=== PATIENT | female | born 1940 | race Caucasian/White ===

== ENCOUNTER 2018-03-10 11:47 | Emergency (ER) | payer OTHER, MEDICARE ==
[~2018-03-10] VITALS: Ht 152.4 cm; Wt 99.8 kg
--- NOTE | 2018-03-10 12:32 | ED AMS/SEIZURE/WEAK/DIZZY ---
History of Present Illness General Chief Complaint: Dizziness Stated Complaint: SENT BY MD FOR DIZZINESS X 2WKS ON AND OFF Source: patient, family Exam Limitations: no limitations Vital Signs & Intake/Output Vital Signs & Intake/Output Vital Signs Date Time Temp Pulse Resp B/P B/P Pulse O2 O2 Flow FiO2 Mean Ox Delivery Rate 03/10 1807 97.7 70 16 122/69 98 Room Air 03/10 1406 98.1 80 18 130/72 94 Room Air 03/10 1213 Room Air 03/10 1159 98.4 84 18 122/74 98 Room Air Allergies Coded Allergies: NO KNOWN ALLERGIES (05/21/12) Triage Note: C/O DIZZINESS THIS AM, LASTED APRROX 1 MINUTES. STATES SHE FELT A "BUZZING" AND A "HUM" IN HER HEAD. DENIES WEAKNESS. NO FACIAL DROOP. HAD 2 SIMILIAR EPSISODES 2 WEEKS AGO. Triage Nurses Notes Reviewed? yes Onset: Abrupt Duration: minute(s): Timing: single episode today Injury Environment: home Severity: mild HPI: 77YO female with hx of DM, HTN, hyperlipidemia presents to ED complaining of abnormal buzzing sensation in her head. Patient states that while she was using her computer about one hour prior to arrival she experienced an episode of buzzing/humming sensation in her head above her left eye. Patient states this episode lasted for approximately 1 minute. Patient states that during this episode she felt as though she could not move, she felt trapped. Patient states that 2 similar episodes have happened in the past about 2 weeks ago. Patient states she had been using her computer since 3 AM. Condition is currently writing of breath, her daughters state that the patient was on the computer for hours without taking a break to eat or use the bathroom. Patient states that the previous episodes have occurred while she was using the computer for extended period of time as well. The patient denies numbness, tingling, blurry vision, headache, dizziness, weakness, chest pain, dyspnea, abdominal pain. (Latia WILDE,Debbie Deutsch) Past History Travel History Traveled to [place] past 21 day No Medical History Any Pertinent Medical History? see below for history Neurological: NONE EENT: NONE Cardiovascular: hypertension, hyperlipidemia Respiratory: NONE Gastrointestinal: NONE Hepatic: NONE Renal: NONE Musculoskeletal: NONE Psychiatric: NONE Endocrine: diabetes Surgical History Surgical History: non-contributory Psychosocial History Who do you live with Patient/Self Services at Home None What is your primary language [place] Citizen Tobacco Use: Never used ETOH Use: denies use Family History Hx Contributory? No (Debbie Cedeño) Review of Systems Review of Systems Constitutional: Reports: see HPI. EENTM: Reports: no symptoms. Respiratory: Reports: no symptoms. Cardiovascular: Reports: no symptoms. GI: Reports: no symptoms. Genitourinary: Reports: no symptoms. Musculoskeletal: Reports: no symptoms. Skin: Reports: no symptoms. Neurological/Psychological: Reports: see HPI. Hematologic/Endocrine: Reports: no symptoms. Immunologic/Allergic: Reports: no symptoms. All Other Systems: Reviewed and Negative (Debbie Cedeño) Physical Exam Physical Exam General Appearance: well developed/nourished, no apparent distress, alert, awake Head: atraumatic, normal appearance Eyes: Bilateral: normal appearance, PERRL, EOMI. 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 No CVA/TIA Diagnosis No Sepsis Present: No Sepsis Focused Exam Completed? No (Debbie Cedeño) Progress Differential Diagnosis: arrythmia, alcohol intoxication, benign positional vertigo, CVA/stroke, dehydration, drug intoxication, electrolyte imbalance, intracranial Hem., intracranial mass/tumor, seizure disorder, UTI/pyelo, vertebrobasilar insuff, Carotid stenosis Plan of Care: Orders Procedure Date/time Status URINALYSIS 03/10 1158 Complete TROPONIN LEVEL 03/10 1158 Complete COMPREHENSIVE METABOLIC PANEL 03/10 1158 Complete CBC WITHOUT DIFFERENTIAL 03/10 1158 Complete EKG 03/10 1148 Active Laboratory Tests 03/10/18 1543: Urine Color YEL, Urine Clarity CLEAR, Urine pH 7.0, Ur Specific Sanderson 1.015, Urine Protein NEG, Urine Ketones NEG, Urine Nitrite NEG, Urine Bilirubin NEG, Urine Urobilinogen 1.0, Ur Leukocyte Esterase SMALL H, Ur Microscopic SEDIMENT EXAMINED, Urine WBC 1-3 H, Ur Epithelial Cells FEW, Urine Hemoglobin NEG, Urine Glucose 100 H 03/10/18 1230: Anion Gap 9, Estimated GFR > 60, BUN/Creatinine Ratio 30.0 H, Glucose 111 H, Calcium 10.3 H, Total Bilirubin 0.4, AST 24, ALT 16, Alkaline Phosphatase 38, Troponin I < 0.01, Total Protein 7.1, Albumin 3.8, Globulin 3.3, Albumin/ Globulin Ratio 1.2, CBC w Diff NO MAN DIFF REQ, RBC 4.76, MCV 80.5 L, MCH 25.5 L, MCHC 31.7 L, RDW 18.3 H, MPV 8.9, Gran % 63.5, Lymphocytes % 25.3, Monocytes % 9.7 H, Eosinophils % 1.3, Basophils % 0.2, Absolute Granulocytes 4.9, Absolute Lymphocytes 2.0, Absolute Monocytes 0.7 H, Absolute Eosinophils 0.1, Absolute Basophils 0 Patient admits to stopping her atorvastatin and potassium supplement for the past 2 weeks. Today the patient's potassium level is within normal limits. The patient is neurologically intact, no focal neurologic deficit. Head CT scan is within normal limits. The patient was seen and evaluated by Dr. Rivera. He recommends obtaining a carotid Doppler ultrasound to assess for stenosis. Ultrasound shows 50-79% stenosis bilaterally. Awaiting vascular consult. Spoke with Dr. Denise - he recommends continuing her baby ASA and statin and he will see the patient in the office. The patient feels ready to go home at this time. Her labs are stable, she is in no acute distress. She has had no symptoms while being here in the emergency department. We'll place vascular as an outpatient. Patient also follow-up with her primary care doctor. She'll continue taking all medications as prescribed. The patient was given strict return precautions. The patient and her family agree with the plan of care. Dr. Rivera agrees with this plan. Diagnostic Imaging: Viewed by Me: CT Scan, Ultrasound. Discussed w/RAD: CT Scan, Ultrasound. Radiology Impression: PATIENT: CHAPINCITO GUNDERSON PRESENT AGE: 77 PATIENT ACCOUNT NO: [id number] : 39 LOCATION: [facility] ORDERING PHYSICIAN: Debbie WILDE SERVICE DATE: 03/10/18-1158 EXAM TYPE: CAT - CT HEAD WO IV CONTRAST EXAMINATION: CT HEAD WITHOUT CONTRAST CLINICAL INFORMATION: Intermittent dizziness episodes. COMPARISON: 05/20/2012 TECHNIQUE: Contiguous axial imaging was performed from the skull base to vertex without intravenous administration of contrast. DLP: 610 mGy-cm FINDINGS: There is no evidence of acute intracranial hemorrhage or territorial infarction. No abnormal mass effect or midline shift is seen. Rushing to white matter differentiation is well preserved. No extra-axial fluid collections are identified. No hydrocephalus. The ventricles are normal in size. Mild periventricular and deep white matter hypoattenuation is consistent with small vessel ischemic change. The osseous structures and soft tissues are normal. The mastoid air cells and visualized portions of the paranasal sinuses are well aerated. IMPRESSION: No acute intracranial pathology. Mild small vessel ischemic changes. DICTATED BY: Mahesh Padilla MD DATE/TIME DICTATED:03/10/181318 SALES TEAM MANAGER: JANNEE DATE/TIME TRANSCRIBED:03/10/181318 CONFIDENTIAL, DO NOT COPY WITHOUT APPROPRIATE AUTHORIZATION. <Electronically signed in Other Vendor System> SIGNED BY: Randy HARRIS,Mahesh 03/10/18 1326, PATIENT: CHAPINCITO GUNDERSON PRESENT AGE: 77 PATIENT ACCOUNT NO: [id number] : 39 LOCATION: [facility] ORDERING PHYSICIAN: Debbie WILDE SERVICE DATE: 03/10/187884 EXAM TYPE: US - [id number] DOPPLER EXAMINATION: DUPLEX BILATERAL CAROTID ULTRASOUND CLINICAL INFORMATION: Episodes of buzzing in head with dizziness. COMPARISON: None. TECHNIQUE: \\H\\B\\N\\ilateral carotid US was performed using real-time ultrasound and Doppler techniques (integrating B-mode 2D vascular images, Doppler spectral analysis and color flow Doppler imaging). These techniques were utilized to interrogate the extracranial carotid and vertebral arteries bilaterally. The degree of stenosis is based off criteria similar to NASCET. FINDINGS: Right side: 1. Small amount of hyperechoic plaque is seen in the ECA/ICA region. 2. The common carotid artery velocity is 87 cm/s. 3. The internal carotid artery velocities are 153 cm/s systolic and 37 cm/s diastolic. 4. The external carotid artery velocity is 85 cm/s. Left side: 1. Small amount of hyperechoic plaque is seen in the ECA/ICA region. 2. The common carotid artery velocity is 96 cm/s. 3. The internal carotid artery velocities are 135 cm/s systolic and 51 cm/s diastolic. 4. The external carotid artery velocity is 69 cm/s. ADDITIONAL FINDINGS: 1. The vertebral arteries show antegrade flow. 2. The subclavian arteries appear normal. IMPRESSION: 1. RIGHT: Moderate, hemodynamically significant stenosis of the proximal right internal carotid artery corresponding to a 50-79% stenosis by velocity criteria. 2. LEFT: Moderate, hemodynamically significant stenosis of the proximal left internal carotid artery corresponding to a 50-70% stenosis by velocity criteria. DICTATED BY: Inocencio Lara MD DATE/TIME DICTATED:03/10/181537 SALES TEAM MANAGER: JANENE DATE/TIME TRANSCRIBED:03/10/181537 CONFIDENTIAL, DO NOT COPY WITHOUT APPROPRIATE AUTHORIZATION. <Electronically signed in Other Vendor System> SIGNED BY: Inocencio Lara MD 03/10/18 1544 Initial ED EKG: sinus tachycardia @100bpm, RBBB, nonspecific ST chages Prior EKG: changed (2011) (Latia WILDE,Debbie Deutsch) Departure Departure Disposition: HOME OR SELF CARE Condition: Stable Clinical Impression Primary Impression: Carotid artery stenosis Qualifiers: Laterality: bilateral Qualified Code: I65.23 - Occlusion and stenosis of bilateral carotid arteries Secondary Impressions: Alterations of sensations Referrals: Zunilda Mauro MD (PCP/Family) Bandar Denise MD Additional Instructions: Follow-up with the vascular specialist. If he cannot follow up with Dr. Denise, see your primary care doctor for a vascular referral. Take your medications as prescribed. Return to give any worsening symptoms or concerns. Please note that there might be incidental findings in your evaluation that are unrelated to the current emergency department visit. Please notify your primary care doctor about this emergency department visit in order to obtain and review all of the testing performed so that these incidental findings can be monitored as needed. If you had an x-ray performed, please understand that some fractures may not be seen on the initial set of x-rays. If your symptoms persist you might need a repeat set of x-rays to check for such a fracture. If you had a laceration evaluated, please understand that foreign bodies such as glass or wood may not be visible to the naked eye or on plain x-rays. If the wound becomes red, swollen, increasingly more painful or if there is any drainage from the wound, please have it reevaluated by a physician for the possibility of a retained foreign body. If you're unable to follow up as outlined in the discharge instructions please return to the emergency department. Thank you for choosing the [facility] Emergency Department for your care. It was a pleasure to serve you today. Departure Forms: Customer Survey General Discharge Information (Latia WILDE,Debbie Deutsch) PA/PIER RUNNER Co-Sign Statement Statement: ED Attending supervision documentation- [X] I saw and evaluated the patient. I have also reviewed all the pertinent lab results and diagnostic results. I agree with the findings and the plan of care as documented in the PA's/PIER RUNNER's documentation. [] I have reviewed the ED Record and agree with the PA's/PIER RUNNER's documentation. [] Additions or exceptions (if any) to the PAs/PIER RUNNER's note and plan are summarized below: [] (Nicole HARRIS,Herve Still)
[2018-03-10 12:45] LABS: ABSOLUTE BASOPHIL COUNT 0 /CUMM (0.0-0.2); ABSOLUTE EOSINOPHIL COUNT 0.1 /CUMM (0.0-0.7); ABSOLUTE GRANULOCYTE CT 4.9 /CUMM (1.4-6.5); ABSOLUTE MONOCYTE COUNT 0.7 /CUMM (0.10-0.60); BASOPHIL % 0.2 % (0.0-2.0); EOSINOPHIL % 1.3 % (0-5); GRANULOCYTE % 63.5 % (42.2-75.2); HEMATOCRIT 38.4 % (37-47); MEAN CORPUSCULAR HGB 25.5 PG (27.0-31.0); MEAN CORPUSCULAR HGB CONC 31.7 G/DL (33.0-37.0); MEAN CORPUSCULAR VOLUME 80.5 FL (81.0-99.0); MEAN PLATELET VOLUME 8.9 FL (7.4-10.4); PLATELET COUNT 334 /CUMM (130-400); RBC DISTRIBUTION WIDTH 18.3 % (11.5-14.5); RED BLOOD CELL CT 4.76 /CUMM (4.20-5.40); WHITE BLOOD CELL COUNT 7.8 /CUMM (4.8-10.8)
--- NOTE | 2018-03-10 13:26 | CT SCAN REPORT ---
EXAMINATION: CT HEAD WITHOUT CONTRAST CLINICAL INFORMATION: Intermittent dizziness episodes. COMPARISON: 05/20/2012 TECHNIQUE: Contiguous axial imaging was performed from the skull base to vertex without intravenous administration of contrast. DLP: 610 mGy-cm FINDINGS: There is no evidence of acute intracranial hemorrhage or territorial infarction. No abnormal mass effect or midline shift is seen. Rushing to white matter differentiation is well preserved. No extra-axial fluid collections are identified. No hydrocephalus. The ventricles are normal in size. Mild periventricular and deep white matter hypoattenuation is consistent with small vessel ischemic change. The osseous structures and soft tissues are normal. The mastoid air cells and visualized portions of the paranasal sinuses are well aerated. IMPRESSION: No acute intracranial pathology. Mild small vessel ischemic changes.
--- NOTE | 2018-03-10 15:45 | ULTRASOUND REPORT ---
EXAMINATION: DUPLEX BILATERAL CAROTID ULTRASOUND CLINICAL INFORMATION: Episodes of buzzing in head with dizziness. COMPARISON: None. TECHNIQUE: \H\B\N\ilateral carotid US was performed using real-time ultrasound and Doppler techniques (integrating B-mode 2D vascular images, Doppler spectral analysis and color flow Doppler imaging). These techniques were utilized to interrogate the extracranial carotid and vertebral arteries bilaterally. The degree of stenosis is based off criteria similar to NASCET. FINDINGS: Right side: 1. Small amount of hyperechoic plaque is seen in the ECA/ICA region. 2. The common carotid artery velocity is 87 cm/s. 3. The internal carotid artery velocities are 153 cm/s systolic and 37 cm/s diastolic. 4. The external carotid artery velocity is 85 cm/s. Left side: 1. Small amount of hyperechoic plaque is seen in the ECA/ICA region. 2. The common carotid artery velocity is 96 cm/s. 3. The internal carotid artery velocities are 135 cm/s systolic and 51 cm/s diastolic. 4. The external carotid artery velocity is 69 cm/s. ADDITIONAL FINDINGS: 1. The vertebral arteries show antegrade flow. 2. The subclavian arteries appear normal. IMPRESSION: 1. RIGHT: Moderate, hemodynamically significant stenosis of the proximal right internal carotid artery corresponding to a 50-79% stenosis by velocity criteria. 2. LEFT: Moderate, hemodynamically significant stenosis of the proximal left internal carotid artery corresponding to a 50-70% stenosis by velocity criteria.
[2018-03-10 18:07] VITALS: BP 122/69
== END 2018-03-10 18:08 ==
LOC: ERH 11:47
PROVIDERS: Physician Assistant
DX: I65.23 Occlusion and stenosis of bilateral carotid arteries (principal); I69.898 Other sequelae of other cerebrovascular disease
CPT/HCPCS: 81001; 93005; 93010